=== PATIENT | female | born 1965 | race Two or more races ===

== ENCOUNTER 2017-05-10 03:18 | Emergency (ER) | payer BC ==
[~2017-05-10] VITALS: Ht 157.5 cm; Wt 64.9 kg
[2017-05-10] MEDS ORDERED: LEVOTHYROXINE75 MCG ORAL (03:38)
[2017-05-10] MEDS ORDERED: TRAMADOL HCL50 MG ORAL ×2 (03:38→04:41)
[2017-05-10] MEDS ORDERED: traMADol 50mg tab ORAL ONE (04:00)
[2017-05-10 04:10] VITALS: BP 129/77
[2017-05-10 04:30] VITALS: BP 139/81
[2017-05-10 04:55] VITALS: BP_SYST 107; BP_SYST 139; BP_DIAS 73; BP_DIAS 81
--- NOTE | 2017-05-10 08:17 | Diagnostic Imaging Report ---
Indication: Chest pain Technique: Single AP view of the chest. Findings: Comparison: None. The bones and extra pulmonary soft tissues, cardiomediastinal silhouette, pulmonary vasculature and parenchyma, and pleural surfaces are unremarkable. IMPRESSION: Negative AP chest.
--- NOTE | 2017-05-13 14:57 | Cardiology Report ---
APPROVED REPORT EKG Measurement Heart [id number] Normal sinus rhythm Normal ECG
--- NOTE | 2017-05-15 08:45 | Emergency Room Report ---
History of Present Illness General Chief Complaint: Back Pain-No Injury Source: Patient Present Illness HPI Patient is a 51-year-old female presented after increased anxiety as well as nausea after running out of her medications. Patient prior history of chronic back pain. Patient been taking tramadol. She reports having increased pain. She her medications approximately 3 days ago. She had not been vomiting. Patient is visiting from [place]. She denied any fever. She denied having any black or bloody stools. Allergies: Coded Allergies: PENICILLINS (Verified Allergy, Mild, 05/10/17) Patient History Past Medical History: see triage record Reviewed Nursing Documentation: PMH: Agreed, PSxH: Agreed Review of Systems All Other Systems: negative except mentioned in HPI Physical Exam Vital Signs Date Time Temp Pulse Resp B/P Pulse Ox O2 Delivery O2 Flow Rate FiO2 05/10/17 03:32 98.2 82 22 131/92 99 Room Air General Appearance: well appearing, no apparent distress, alert, GCS 15 Head: normocephalic, atraumatic ENT: hearing grossly normal, normal voice Neck: full range of motion, supple Respiratory: no respiratory distress, speaking full sentences Cardiovascular #1: normal inspection Gastrointestinal: normal inspection, soft Musculoskeletal: normal inspection, back normal, no calf tenderness Neurologic: normal gait Psychiatric: mood/affect normal Skin: no rash Medical Decision Making Diagnostic Impression: Primary Impression: Anxiety Additional Impression: Medication withdrawal ER Course Patient presented for anxiety. The differential diagnosis included was not limited to arrhythmia, thyroid storm, sepsis, anemia, myocardial infarction, alcohol withdrawal, stimulant abuse, caffeine overdose among others. EKG interpreted by me showed normal sinus rhythm without acute ST or T wave changes. The patient given tramadol. The [employer] database was reviewed for the patient's prior prescription history. The patient appears to have medication withdrawal. This and appeared require any further workup. The patient is advised to follow up with primary care doctor in 1-2 days. Patient is advised to return if any worsening condition or if any changes in status that are concerning. Last Vital Signs Date Time Temp Pulse Resp B/P Pulse Ox O2 Delivery O2 Flow Rate FiO2 05/10/17 04:57 98.2 05/10/17 04:55 79 19 107/73 96 Room Air Status: improved Disposition: HOME, SELF-CARE Condition: Stable Scripts Tramadol Hcl* (ULTRAM*) 50 Mg Tablet 50 MG ORAL Q6H Y for For Pain, #10 TAB 0 Refills Prov: Jeet Magaña 05/10/17 Patient Instructions: Back Pain, Adult Jeet Magaña May 15, 2017 08:45
== END 2017-05-10 04:55 | disposition home or self-care (01) ==
LOC: EMR 04:30
DX: F41.9 Anxiety disorder, unspecified (principal); F19.939 Other psychoactive substance use, unspecified with withdrawal, unspecified; Z88.0 Allergy status to penicillin
CPT/HCPCS: 71010; 93005; 99283